=== PATIENT | male | born 1990 | race Caucasian/White ===

== ENCOUNTER 2018-02-11 12:34 | Emergency (ER) | payer OTHER, SELFPAY ==
[2018-02-11] MEDS ORDERED: Adacel (T-DAP) 0.5 ML VIAL ONE (12:55)
[2018-02-11] MEDS ORDERED: HYDROcodone/Acetaminophen 5/325 mg Tablet ONE (12:55)
[2018-02-11] MEDS ORDERED: Bacitracin Zinc 1 Packet ONE (13:22)
--- NOTE | 2018-02-11 13:55 | RAD ---
LEFT FOREARM 2 VIEWS: Date: 02/11/18 HISTORY: Fall with injury to left forearm. FINDINGS: No evidence of fracture. No osseous or soft tissue abnormality identified. IMPRESSION: No acute findings. POS: [facility]
--- NOTE | 2018-02-11 13:56 | RAD ---
LEFT WRIST 3 VIEWS: Date: 02/11/18 HISTORY: Injury with pain. FINDINGS: Carpals appear normally aligned. No evidence of carpal fracture. There is a mildly comminuted fracture involving the base of the fifth metacarpal at the carpometacarp al joint. The other metacarpals and phalanges appear intact. IMPRESSION: Fracture base of fifth metacarpal. POS: [facility]
== END 2018-02-11 13:58 | disposition home or self-care (01) ==
LOC: NAV ERS 12:34
DX: S62.317A Displaced fracture of base of fifth metacarpal bone, left hand, initial encounter for closed fracture (principal); K21.9 Gastro-esophageal reflux disease without esophagitis; J45.909 Unspecified asthma, uncomplicated; F17.210 Nicotine dependence, cigarettes, uncomplicated; X50.1XXA Overexertion from prolonged static or awkward postures, initial encounter
CPT/HCPCS: 29125; 90471; 90715

== ENCOUNTER 2018-07-14 11:35 | Emergency (ER) | payer OTHER ==
--- NOTE | 2018-07-14 12:12 | RAD ---
F3 views of the left foot HISTORY: left foot injury COMPARISON: None IMPRESSION: There is a comminuted shaft and distal metaphyseal fracture of the small digit proximal p halanx with external rotation and lateral angulation of the distal fracture fragment. No additional a cute osseous abnormality is evident. There is instrumentation involving the distal tibia with associa magda healed distal tibial fracture.
[2018-07-14] MEDS ORDERED: Lidocaine 1% (PF) 30 ML VIAL ONE (12:18)
== END 2018-07-14 12:50 | disposition home or self-care (01) ==
LOC: NAV ERS 11:35
DX: S92.512A Displaced fracture of proximal phalanx of left lesser toe(s), initial encounter for closed fracture (principal); S99.202A Unspecified physeal fracture of phalanx of left toe, initial encounter for closed fracture; K21.9 Gastro-esophageal reflux disease without esophagitis; J42 Unspecified chronic bronchitis; F17.210 Nicotine dependence, cigarettes, uncomplicated; W45.8XXA Other foreign body or object entering through skin, initial encounter
CPT/HCPCS: 28515; J2001

== ENCOUNTER 2018-08-04 12:44 | Emergency (ER) | payer OTHER ==
--- NOTE | 2018-08-04 14:06 | RAD ---
XR Tib Fib Lt Leg 2 View: 08/04/2018 1:06 PM CLINICAL INDICATION: Injury with pain COMPARISON: 06/02/2013 FINDINGS: Fracture:No fracture. Postoperative fixation of the tibia with remote osseous deformity present at the distal tibial diaphy sis. No obvious hardware complication. Subtle nondisplaced lucency of the distal fibular diaphysis is present IMPRESSION: Postoperative left tibia with remote fracture deformity. Adjacent chronic appearing distal fibular fr acture deformity also present.
== END 2018-08-04 14:16 | disposition home or self-care (01) ==
LOC: NAV ERS 12:44
DX: S80.12XA Contusion of left lower leg, initial encounter (principal); K21.9 Gastro-esophageal reflux disease without esophagitis; J45.909 Unspecified asthma, uncomplicated; Z87.891 Personal history of nicotine dependence; W01.198A Fall on same level from slipping, tripping and stumbling with subsequent striking against other object, initial encounter

== ENCOUNTER 2020-05-25 18:51 | Emergency (ER) | payer OTHER, SELFPAY ==
--- NOTE | 2020-05-25 19:42 | RAD ---
2 views right forearm: 05/25/2020 COMPARISON: None HISTORY: Injury, trauma, pain FINDINGS: No fracture or dislocation. No radiopaque foreign body or subcutaneous gas. The right wrist is not well evaluated on this examination. If there are symptoms referable to the wrist, dedicated right wrist imaging advised. IMPRESSION: No acute findings.
== END 2020-05-25 19:57 | disposition home or self-care (01) ==
LOC: NAV ERS 18:51
DX: S57.81XA Crushing injury of right forearm, initial encounter (principal); K21.9 Gastro-esophageal reflux disease without esophagitis; J44.9 Chronic obstructive pulmonary disease, unspecified; Z87.891 Personal history of nicotine dependence; Z79.899 Other long term (current) drug therapy; W20.8XXA Other cause of strike by thrown, projected or falling object, initial encounter

== ENCOUNTER 2020-12-15 08:27 | Emergency (ER) | payer BC, SELFPAY ==
[2020-12-16 12:26] LABS: SARS-CoV-2 PCR by NAA Not Detected (NotDetected)
== END 2020-12-15 10:00 | disposition home or self-care (01) ==
LOC: NAV ERS 08:27
DX: R05 Cough (principal); M79.10 Myalgia, unspecified site; Z20.822 Contact with and (suspected) exposure to COVID-19; K21.9 Gastro-esophageal reflux disease without esophagitis; J45.909 Unspecified asthma, uncomplicated; Z87.891 Personal history of nicotine dependence
CPT/HCPCS: 99283; U0003; U0005

== ENCOUNTER 2022-05-07 18:32 | Emergency (ER) | payer BC, SELFPAY ==
[2022-05-07] MEDS ORDERED: Acetaminophen 500 MG TAB ONE (18:51)
== END 2022-05-07 19:22 | disposition home or self-care (01) ==
LOC: NAV ERS 18:32
DX: S97.112A Crushing injury of left great toe, initial encounter (principal); J45.909 Unspecified asthma, uncomplicated; K21.9 Gastro-esophageal reflux disease without esophagitis; W22.8XXA Striking against or struck by other objects, initial encounter; Z87.891 Personal history of nicotine dependence

== ENCOUNTER 2024-12-13 08:39 | Emergency (ER) | payer BC ==
[2024-12-13] MEDS ORDERED: Sulfameth/Trimethoprim DS 800-160mg TAB ONE (09:05)
== END 2024-12-13 09:10 | disposition home or self-care (01) ==
LOC: NAV ERS 08:39
DX: L02.31 Cutaneous abscess of buttock (principal); J45.909 Unspecified asthma, uncomplicated; K21.9 Gastro-esophageal reflux disease without esophagitis; F17.210 Nicotine dependence, cigarettes, uncomplicated; Z79.51 Long term (current) use of inhaled steroids; Z79.899 Other long term (current) drug therapy
CPT/HCPCS: 99283

== ENCOUNTER 2025-01-20 18:10 | Emergency (ER) | payer BC ==
[2025-01-20] MEDS ORDERED: Cyclobenzaprine 10 MG TAB ONE (18:43)
== END 2025-01-20 19:10 | disposition home or self-care (01) ==
LOC: NAV ERS 18:10
DX: M43.6 Torticollis (principal); K21.9 Gastro-esophageal reflux disease without esophagitis; J45.909 Unspecified asthma, uncomplicated; F17.210 Nicotine dependence, cigarettes, uncomplicated; Z79.899 Other long term (current) drug therapy
CPT/HCPCS: 99283

== ENCOUNTER 2025-03-29 15:23 | Emergency (ER) | payer BC | END 2025-03-29 16:46 | disposition home or self-care (01) | LOC: NAV ERS 15:23 | DX: R07.89 Other chest pain (principal); J45.909 Unspecified asthma, uncomplicated; K21.9 Gastro-esophageal reflux disease without esophagitis; F17.210 Nicotine dependence, cigarettes, uncomplicated; Z79.899 Other long term (current) drug therapy; Z79.51 Long term (current) use of inhaled steroids | CPT/HCPCS: 71250 ==